=== PATIENT | female | born 1980 | race Caucasian/White ===

== ENCOUNTER 2018-01-19 16:14 | Emergency (ER) | payer SELFPAY ==
[2018-01-19] MEDS ORDERED: ONDANSETRON 4 MG TAB.RAPDIS PO ONE (17:13)
[2018-01-19] MEDS ORDERED: FAMOTIDINE 20 MG TABLET PO ONE (17:13)
[2018-01-19] MEDS ORDERED: OXYCODONE-ACETAMINOPHEN 5-325 MG TABLET PO ONE (17:13)
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
[2018-01-19 17:37] VITALS: BP 138/93
== END 2018-01-19 17:41 | disposition home or self-care (01) ==
LOC: ER 16:14
DX: S42.002A Fracture of unspecified part of left clavicle, initial encounter for closed fracture (principal); M25.512 Pain in left shoulder; Y04.8XXA Assault by other bodily force, initial encounter; R11.10 Vomiting, unspecified; Z87.891 Personal history of nicotine dependence
CPT/HCPCS: 99283; L3650; S0119